=== PATIENT | female | born 1995 | race African-American/Black ===

== ENCOUNTER 2023-07-12 19:27 | Emergency (ER) | payer BC, OTHER ==
[2023-07-12 19:47] VITALS: BP 150/93; PULSE 91; RESP 18; TEMP 97.8; BMI 34.3
== END 2023-07-12 20:42 | disposition home or self-care (01) ==
LOC: JERFT 19:27
DX: R09.82 Postnasal drip (principal); J06.9 Acute upper respiratory infection, unspecified; B97.89 Other viral agents as the cause of diseases classified elsewhere; R05.9 Cough, unspecified; R09.81 Nasal congestion
CPT/HCPCS: 82962; 99283-25

== ENCOUNTER 2023-10-26 20:04 | Emergency (ER) | payer BC ==
[2023-10-26 20:14] VITALS: BP 147/93; PULSE 81; RESP 18; TEMP 99.3; BMI 33.7
[2023-10-26] MEDS ORDERED: PROCHLORPERAZINE INJECTION 10 MG/2 ML VIAL ONE (21:44)
[2023-10-26] MEDS ORDERED: MAGNESIUM 1GM/D5W - 1 GM/100 ML IVPB IVPB ONE (21:44)
[2023-10-26] MEDS ORDERED: ACETAMINOPHEN INJECTION 100 ML ONE (21:44)
[2023-10-26] MEDS: LACTATED RINGERS SOLUTION 1000 ML INFUS.BAG IV ONE (22:09)
[2023-10-26] MEDS: PROCHLORPERAZINE INJECTION 10 MG/2 ML VIAL IVPB ONE (22:09)
[2023-10-26] MEDS ORDERED: ACETAMINOPHEN 500 MG TABLET (FP) ONE (22:12)
[2023-10-26] MEDS: ACETAMINOPHEN 500 MG TABLET (FP) PO ONE (22:19)
[2023-10-26] MEDS: ACETAMINOPHEN 1000 MG/100 ML BAG IVPB ONE (22:19)
[2023-10-26] MEDS: MAGNESIUM 1GM/D5W - 1 GM/100 ML IVPB IVPB ONE (22:31)
[2023-10-26] MEDS: KETOROLAC TROMETHAMINE 30 MG/1 ML VIAL IVPUSH ONE (23:10)
[2023-10-26] MEDS ORDERED: KETOROLAC TROMETHAMINE 15 MG/ML VIAL ONE (23:16)
== END 2023-10-27 00:13 | disposition home or self-care (01) ==
LOC: JER 20:04
PROC: 3E033NZ Introduction of Analgesics, Hypnotics, Sedatives into Peripheral Vein, Percutaneous Approach (ICD-10-PCS; principal; 2023-10-26)
PROC: 3E0333Z Introduction of Anti-inflammatory into Peripheral Vein, Percutaneous Approach (ICD-10-PCS; 2023-10-26)
PROC: 3E033GC Introduction of Other Therapeutic Substance into Peripheral Vein, Percutaneous Approach (ICD-10-PCS; 2023-10-26)
PROC: 3E033GC Introduction of Other Therapeutic Substance into Peripheral Vein, Percutaneous Approach (ICD-10-PCS; 2023-10-26)
DX: G43.909 Migraine, unspecified, not intractable, without status migrainosus (principal); R11.0 Nausea
CPT/HCPCS: 36415; 84702; 99284-25; J0131